=== PATIENT | male | born 1950 | race Caucasian/White ===

== ENCOUNTER → 2016-07-18 | Outpatient (CLI) | payer OTHER ==
[2015-12-28 16:40] VITALS: BP 157/54
--- NOTE | 2016-07-18 18:57 | RAD ---
Examination: Ultrasound left lower extremity venous duplex HISTORY History of left leg swelling for 3-4 days ago history of deep venous thrombosis. COMPARISON 12/28/2015. TECHNIQUE Grayscale, color Doppler 2D, spectral waveform analysis of the the left lower extremity venous were performed. Findings: The visualized common femoral vein, superficial femoral vein, popliteal vein demonstrate normal compression augmentation of flow. The visualized calf veins are patent. Few prominent left inguinal, upper thigh lymph nodes identified the largest measuring 3.8 centimeters. IMPRESSION No evidence of deep venous thrombosis left lower extremity venous system. Electronically signed by: Hugo Mishra (Jul 18, 2016 18:55:52)
== END | disposition home or self-care (01) ==
LOC: US 17:10
PROVIDERS: ATTEND Emergency Medicine Emergency Medical Services
DX: M79.89 Other specified soft tissue disorders (principal); Z86.718 Personal history of other venous thrombosis and embolism
CPT/HCPCS: 93971